=== PATIENT | female | born 1960 | race Caucasian/White ===

== ENCOUNTER → 2017-04-08 | Outpatient (CLI) | payer BC ==
[~2017-04-08] MED LIST: ASPCH81X PO; CARB25TA12 PO; LORA10CA2 PO; PRAM0.256 PO
--- NOTE | 2017-04-09 08:02 | MAMMOGRAPHY REPORT ---
BILATERAL DIGITAL SCREENING MAMMOGRAM TOMOSYNTHESIS WITH CAD: 04/08/2017 CLINICAL HISTORY: Routine screening. Patient has no complaints. TECHNIQUE: Breast tomosynthesis in addition to standard 2D mammography was performed. Current study was also evaluated with a Computer Aided Detection (CAD) system. COMPARISON: Comparison is made to exams dated: 10/26/2016 mammogram, 04/04/2016 mammogram, 04/09/2014 m ammogram, 03/30/2013 mammogram, 08/14/2011 mammogram - [facility], and 04/14/2009. BREAST COMPOSITION: There are scattered areas of fibroglandular density in both breasts. FINDINGS: There are benign-appearing calcifications scattered in the breasts. No suspicious mass, a rchitectural distortion or cluster of suspicious microcalcifications is seen. IMPRESSION: ACR BI-RADS CATEGORY 1: NEGATIVE There is no mammographic evidence of malignancy. A 1 year screening mammogram is recommended. The pa tient will receive written notification of the results. Approximately 10% of breast cancers are not detected with mammography. A negative mammographic report should not delay biopsy if a clinically suggestive mass is present. Mae Connolly M.D. ay/:04/08/2017 15:58:35 Fire Control Officer: Elin SIMPSON(R)(M), [facility] letter sent: Normal 1/2 BI-RADS Code: ACR BI-RADS Category 1: Negative
== END | disposition home or self-care (01) ==
LOC: C.MAMM 13:08
PROVIDERS: ATTEND Obstetrics & Gynecology
DX: Z12.31 Encounter for screening mammogram for malignant neoplasm of breast (principal)

== ENCOUNTER → 2017-07-22 | Outpatient (CLI) | payer BC ==
--- NOTE | 2017-07-22 13:55 | DIAGNOSTIC IMAGING REPORT ---
LEFT LOWER EXTREMITY VENOUS DOPPLER HISTORY: LEFT LEG PAIN, SOFT TISSUE MASS R/O DVT HX COMPARISON STUDY: None. FINDINGS: There is normal compressibility, flow, and augmentation within the left lower extremity deep venous system. There is a thrombosed superficial vein within the proximal lower leg at the patient's area of concern. IMPRESSION: No DVT within the left lower extremity. Thrombosed superficial vein within the proximal lower leg. Electronically signed by: Rigo Joshi M.D. 07/22/2017 1:54 PM Dictated Date/Time: 07/22/2017 1:53 PM
== END | disposition home or self-care (01) ==
LOC: C.ULTRBC 13:20
DX: R22.42 Localized swelling, mass and lump, left lower limb (principal); M79.605 Pain in left leg

== ENCOUNTER → 2017-07-26 | Outpatient (CLI) | payer BC ==
--- NOTE | 2017-07-26 10:03 | DIAGNOSTIC IMAGING REPORT ---
LEFT LOWER EXTREMITY VENOUS DOPPLER HISTORY: SUPERFICIAL THROMBOSIS PROX L LEG,HX STROKE COMPARISON STUDY: Left leg venous Doppler 07/22/2017. FINDINGS: There is normal compressibility, flow, and augmentation within the left lower extremity deep venous system. No significant change in the thrombosed superficial vein within the proximal left lower leg at the patient's area of interest. IMPRESSION: No DVT within the left lower extremity. No significant change in the thrombosed superficial vein within the proximal left lower leg. Electronically signed by: Rigo Joshi M.D. 07/26/2017 10:01 AM Dictated Date/Time: 07/26/2017 9:38 AM
== END | disposition home or self-care (01) ==
LOC: C.ULTRBC 08:55
DX: I82.812 Embolism and thrombosis of superficial veins of left lower extremity (principal); Z86.73 Personal history of transient ischemic attack (TIA), and cerebral infarction without residual deficits